=== PATIENT | female | born 1960 | race Caucasian/White ===

== ENCOUNTER 2018-03-15 09:57 | Day surgery (SDC) | payer OTHER ==
[2018-03-15] MEDS ORDERED: ZOFRAN ODT4 MG PO (14:16)
[2018-03-15] MEDS ORDERED: NEURONTIN300 MG PO (14:16)
[2018-03-15] MEDS ORDERED: PERCOCET 5-3251 EACH PO (14:16)
[2018-03-15] MEDS ORDERED: MIRALAX17 GM PO (14:16)
== END 2018-03-15 18:25 | disposition home or self-care (01) ==
LOC: CIR.AMB 09:57
DX: K43.0 Incisional hernia with obstruction, without gangrene (principal); K42.0 Umbilical hernia with obstruction, without gangrene